=== PATIENT | female | born 1965 | race Caucasian/White ===

== ENCOUNTER 2018-02-24 07:25 | Day surgery (SDC) | payer OTHER ==
[2018-02-16 15:24] VITALS: BMI 23.6
[2018-02-24] MEDS ORDERED: PROPOFOL 20 ML ONE ×2 (07:29)
[2018-02-24] MEDS ORDERED: LIDOCAINE HCL/PF 2% SDV 5ML VIAL ONE (07:29)
[2018-02-24 07:39] VITALS: PULSE 61; TEMP 97.8
[2018-02-24 09:23] VITALS: BP 129/75
== END 2018-02-24 09:30 | disposition home or self-care (01) ==
LOC: FASU-ENDO 07:25
PROVIDERS: ATTEND Internal Medicine Gastroenterology
PROC: 0DJD8ZZ Inspection of Lower Intestinal Tract, Via Natural or Artificial Opening Endoscopic (ICD-10-PCS; principal; 2018-02-24 08:29)
DX: Z86.010 Personal history of colon polyps (principal); K57.30 Diverticulosis of large intestine without perforation or abscess without bleeding